=== PATIENT | male | born 1960 ===

== ENCOUNTER 2025-04-12 06:22 | Day surgery (SDC) | payer MEDICARE, SELFPAY ==
[2025-04-12 09:04] LABS: Glucose - Point of Care 162 mg/dl (70-99)
== END 2025-04-12 09:44 | disposition home or self-care (01) ==
LOC: GI 06:22
PROVIDERS: ATTENDING PHYSICIAN Internal Medicine Gastroenterology
DX: Z12.11 Encounter for screening for malignant neoplasm of colon (principal); K64.8 Other hemorrhoids; K57.30 Diverticulosis of large intestine without perforation or abscess without bleeding; D12.2 Benign neoplasm of ascending colon; D12.3 Benign neoplasm of transverse colon; Z80.0 Family history of malignant neoplasm of digestive organs
CPT/HCPCS: 45385; 45380; 82962; 88305